=== PATIENT | female | born 1940 | race Caucasian/White ===

== ENCOUNTER 2020-01-29 13:42 | Emergency (ER) | payer MEDICARE, MEDICAID, SELFPAY ==
[2020-01-29 14:00] VITALS: BP 156/47; PULSE 81; RESP 18; TEMP 37.1; O2SAT 95; BMI 85.0
--- NOTE | 2020-01-29 14:11 | ED_ITS ---
HPI - Eye Problem General Chief complaint: Eye Problems Stated complaint: eye pain Time Seen by Provider: 01/29/20 14:11 Source: patient Mode of arrival: ambulatory Limitations: no limitations History of Present Illness chief complaint: eye pain and eye redness Onset (ago): day(s) (yesterdsay) Onset description: gradual Duration: constant Location: left eye Eye Symptoms: redness, pain, itching and other (teary eyes) Place: home Mechanism: none Severity: mild If Pain, Quality: burning Associated symptoms: none Treatments Prior to Arrival: none Related Data Previous Rx's Medication Instructions Recorded cephalexin 500 mg PO BID 7 Days #14 cap 01/29/20 erythromycin 0.5 inch OPHTHALMIC (EYE) TID 7 01/29/20 Days #3.5 g Allergies Allergy/AdvReac Type Severity Reaction Status Date / Time diazepam Allergy Intermediate MENTAL Unverified 12/09/19 14:53 STATUS CHANGES Review of Systems Review of Systems: Constitutional : No Weight loss, No Fever, No Chills ENT/Mouth : No sore throat, No Rhinorrhea Eyes: pos Eye Pain, No Swelling, pos Redness Cardiovascular : No Chest Pain, No SOB, No Dyspnea on Exertion, No Orthopnea, No Edema, No Palpitations Respiratory : No Cough, No Sputum, No Wheezing Gastrointestinal : No Nausea, No Vomiting, No Diarrhea, No Constipation, No abdominal Pain, No Hematochezia, No Melena Genitourinary : No Dysuria, No Urinary Frequency, No Hematuria, Musculoskeletal : No joint pain, No Myalgias, No Joint Swelling Skin : No Skin Lesions, No rash Neuro : No Weakness, No Numbness, No Dizziness, No Headache PMFSH Past Medical History Attestation statement: The following information was validated with the patient. Medical History Anxiety Asthma CHF (congestive heart failure) High cholesterol HTN (hypertension) Social History Social History Smoked in Last 30 Days: No Use of substances other than those prescribed or required for medical reasons: No Advance Directives: No Advance Directives Information Provided: No Physical Exam Vital Signs: Vital Signs: Last Vital Signs Temp 98.7 F 01/29/20 14:00 Pulse 81 01/29/20 14:00 Resp 18 01/29/20 14:00 BP 156/47 H 01/29/20 14:00 Pulse Ox 95 01/29/20 14:00 Body Mass Index 85.0 Appearance: Alert. Oriented X3. No acute distress. Eyes: Pupils equal, round and reactive to light. L eye mild injection, clear discharge, with tetracaine and fluorescein - no abrasion under toledo lamp, repeat rosina pressures 17, vision intact, mild erythema and swelling of L upper eyelid and surrounding periorbital area - no stranding very mild changes ENT: Pharynx normal. Neck: Normal inspection. Neck supple. CVS: Normal heart rate and rhythm. Pulses normal. Respiratory: No respiratory distress. Breath sounds normal. Abdomen: Soft and nontender. Skin: Skin warm and dry. Normal skin color. Normal skin turgor. Extremities: No lower extremity edema. No calf ttp Neuro: Oriented X 3. No motor deficit. No sensory deficit. MDM - Eye Problem MDM Narrative Medical decision making narrative: 80 yo female with hx of CHF, HTN here with L eye pain irritation no FB or trauma no vision changes will need eye exam, staining, rosina pressures suspect mild periorbital cellulitis and mild bl epharitis Discharge Plan Discharge Clinical Impression: Blepharitis Qualifiers: Blepharitis type: unspecified type Laterality: left Eyelid: both upper and lower Qualified Code(s): H01.00B - Unspecified blepharitis left eye, upper and lower eyelids Patient Disposition: Home, Self-Care Instructions: Blepharitis (ED) Additional Instructions: return to ED for any worsening symptoms or concerns Prescriptions: New erythromycin 5 mg/gram (0.5 %) ointment 0.5 inch ophthalmic (eye) TID 7 Days Qty: 3.5 RF: 0 cephalexin 500 mg capsule 500 mg PO BID 7 Days Qty: 14 RF: 0 Referrals: Anne Amado MD [Primary Care Provider] - 2 days (if not better)
[2020-01-29] MEDS: Tetracaine HCl/PF 0.5% Oph Sol 4 ML DROPS 1 DROP EYE-LEFT (14:15)
[2020-01-29] MEDS: Fluorescein Sodium STRIP 1 STRIP EYE-LEFT (14:16)
[2020-01-29] MEDS: Erythromycin Base 0.5% Oph Oin 1 GM TUBE 1 CM EYE-LEFT (14:33)
== END 2020-01-29 14:58 | disposition home or self-care (01) ==
PROVIDERS: Emergency Provider Emergency Medicine; PCP Internal Medicine
DX: H01.00B Unspecified blepharitis left eye, upper and lower eyelids (principal); H57.12 Ocular pain, left eye; Z79.899 Other long term (current) drug therapy
CPT/HCPCS: 99283; 99284

== ENCOUNTER 2020-06-07 08:26 | Outpatient (REF) | payer MEDICARE, MEDICAID, SELFPAY ==
[2020-06-07 09:06] LABS: MANUAL DIFF FLAG NO
[2020-06-07 09:09] LABS: Basophils Percent Auto 0.6 % (0-2); Eosinophils Absolute Auto 0.2 X10*3/uL (0.0-0.4); Eosinophils Percent Auto 4.8 % (0-4); Hemoglobin 12.6 g/dl (12.0-16.0); Lymphocytes Absolute Auto 1.9 X10*3/uL (1.2-4.9); Lymphocytes Percent Auto 38.8 % (20-40); Mean Corpuscular HGB Conc 33.2 g/dl (31.0-35.0); Mean Corpuscular Hemoglobin 32.1 pg (27.0-33.0); Mean Corpuscular Volume 96.7 fL (80-98); Mean Platelet Volume 9.2 fL (9.4-12.3); Monocytes Absolute Auto 0.5 X10*3/uL (0.1-1.2); Monocytes Percent Auto 10.9 % (2-11); Neutrophils Absolute Auto 2.2 X10*3/uL (2.0-8.3); Neutrophils Percent Auto 44.9 % (45-73); Platelet Count 172 X10*3/uL (160-400); Red Blood Count 3.93 X10*6/uL (4.20-5.50); Red Cell Distribution Width 12.4 % (11.0-16.0)
[2020-06-07 09:29] LABS: Carbon Dioxide 34 mmol/L (22-29); Chloride 102 mmol/L (96-108); Potassium 4.1 mmol/L (3.3-5.1); Sodium 142 mmol/L (135-145)
[2020-06-07 09:30] LABS: Anion Gap 10 (12-20); Blood Urea Nitrogen 42 mg/dL (9-16); Calcium 8.7 mg/dL (8.4-10.2); Estimated Glomerular Filt Rate 46
[2020-06-10 15:01] LABS: Calcium (PTHI) 8.9 mg/dL (8.6-10.4); PTHI 157 pg/mL (14-64)
== END 2020-06-07 08:27 | disposition home or self-care (01) ==
LOC: HO.LAB 08:26
PROVIDERS: PCP Internal Medicine; Visit Provider Internal Medicine Hypertension Specialist
DX: N18.31 Chronic kidney disease, stage 3a (principal)
CPT/HCPCS: 36415; 80051; 82310; 82565; 83970; 84520; 85025

== ENCOUNTER 2020-06-26 08:32 | Emergency (ER) | payer MEDICARE, MEDICAID, SELFPAY ==
--- NOTE | ~2020-06-26 | XR_ITS ---
EXAMINATION: LEFT FEMUR AND HIP X-RAYS CLINICAL INFORMATION: Pain. Fall. COMPARISON: Previous left hip x-ray December 2016 TECHNIQUE: 2 views of the left hip and 2 views of the left femur FINDINGS: Left hip: Bone alignment is normal. No fracture or dislocation is seen. The joint space is normal. There is soft tissue arterial calcification. Left knee: Bone alignment is normal. No fracture or dislocation is seen. The bones are osteopenic. There is arthritis at the medial femoral tibial and patellofemoral joints. There is no significant joint effusion. There is soft tissue arterial calcification. XR/XR knee LT 3V IMPRESSION: No fracture or dislocation seen. 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
--- NOTE | ~2020-06-26 | XR_ITS ---
EXAMINATION: LEFT FEMUR AND HIP X-RAYS CLINICAL INFORMATION: Pain. Fall. COMPARISON: Previous left hip x-ray December 2016 TECHNIQUE: 2 views of the left hip and 2 views of the left femur FINDINGS: Left hip: Bone alignment is normal. No fracture or dislocation is seen. The joint space is normal. There is soft tissue arterial calcification. Left knee: Bone alignment is normal. No fracture or dislocation is seen. The bones are osteopenic. There is arthritis at the medial femoral tibial and patellofemoral joints. There is no significant joint effusion. There is soft tissue arterial calcification. XR/XR femur LT 2V IMPRESSION: No fracture or dislocation seen. 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
--- NOTE | ~2020-06-26 | CT_ITS ---
EXAMINATION: HEAD CT WITHOUT CONTRAST CLINICAL INFORMATION: Weakness COMPARISON: Previous head CT May 2018 TECHNIQUE: Axial images through the brain without contrast. Sagittal and coronal reconstructions on the technologist workstation were performed. Patient dose 6 1 6 mg/cm. This CT examination was performed using dose optimization techniques as appropriate, variously including the following: *Automated exposure control *Adjustment of mA and/or kV according to patient size (this includes techniques or standardized protocols for targeted exams where dose is matched to indication/reason for exam; i.e. extremities or head) *Use of iterative reconstruction technique FINDINGS: There is no evidence of an extra-axial collection. There is no evidence of intra-axial or extra-axial hemorrhage. Ventricles and extra-axial CSF spaces are appropriate. Deras-white matter differentiation is normal. There is an old left thalamic lacunar infarct. No mass, mass effect or acute infarct is seen. No skull fracture is seen. Visualized paranasal sinuses, mastoid air cells and middle ears are clear. CT/CT head/brain wo con IMPRESSION: No acute findings. 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 EXAMINATION: Chest x-ray CLINICAL INFORMATION: Weakness COMPARISON: Previous chest x-ray May 2018 TECHNIQUE: Two-view chest FINDINGS: The cardiac silhouette is upper normal in size but stable. The thoracic aorta is tortuous and may be ectatic but appears stable as well. There is a large air-fluid level behind the heart suggestive of an esophageal hernia. There is chronic scarring or subsegmental atelectasis in the right mid lung that is unchanged. The lungs are otherwise clear. There is no pleural effusion or pneumothorax. There is arthritis at the shoulder joints. There are degenerative changes of the thoracic spine. IMPRESSION: No evidence for acute disease in the chest. Large esophageal hernia. Evidence of atherosclerotic disease. Chronic linear scarring or subsegmental atelectasis in the right middle lobe.
[2020-06-26 08:35] VITALS: BP 129/61; PULSE 79; O2SAT 95
[2020-06-26 08:43] VITALS: BP 111/64; PULSE 84; RESP 18; TEMP 36.9; O2SAT 100; BMI 39.7
--- NOTE | 2020-06-26 08:56 | ECG_ITS ---
Test Reason : WEAKNESS Blood Pressure : / mmHG Vent. 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
--- NOTE | 2020-06-26 08:59 | ED_ITS ---
HPI - Weakness General Chief complaint: Weakness <SHELBY Bustos Last Filed: 06/26/20 16:26> Stated complaint: INCREASED WEAKNESS WHILE WALKING FELT FAINT <SHELBY Bustos Last Filed: 06/26/20 16:26> Time Seen by Provider: 06/26/20 08:46 <Michaela Morales NP - Last Filed: 06/26/20 16:26> Source: patient and EMS <SHELBY Bustos Last Filed: 06/26/20 16:26> Mode of arrival: EMS <SHELBY Bustos Last Filed: 06/26/20 16:26> Limitations: no limitations <SHELBY Bustos Last Filed: 06/26/20 16:26> History of Present Illness HPI Narrative: 80yo female of anxiety, asthma, congestive heart failure, high cholesterol, hypertension here with complaints of generalized weakness for 3-4 days. The patient tells me that she has had some lower extremity swelling and she has some dyspnea with exertion which has been for quite some time and is not worsened. She denies any chest pain. She does have a chronic dry cough which is not worsened. She is also complaining of feeling lightheaded with position changes for the last few days. She tells me she almost had a fall yesterday due to feeling lightheaded. Denies any headache, fevers, chills, neck pain, back pain, vomiting, diarrhea. She has had some urinary frequency. Had fall 2 days ago landing on left knee and left leg. No head injury or loss of consciousness <SHELBY Bustos Last Filed: 06/26/20 16:26> Related Data Home medications: Previous Rx's Medication Instructions Recorded cephalexin 500 mg PO BID 7 Days #14 cap 01/29/20 erythromycin 0.5 inch OPHTHALMIC (EYE) TID 7 01/29/20 Days #3.5 g <SHELBY Bustos Last Filed: 06/26/20 16:26> Allergies/Adverse reactions: Allergies Allergy/AdvReac Type Severity Reaction Status Date / Time diazepam Allergy Intermediate MENTAL Verified 06/26/20 08:43 STATUS CHANGES <SHELBY Bustos Last Filed: 06/26/20 16:26> Review of Systems Review of Systems: Yes all other systems are reviewed and are negative <Michaela Morales NP - Last Filed: 06/26/20 16:26> Constitutional: Constitutional: Reports no additional constitutional c omplaints, Denies body ache(s), Denies chills, Denies fever(s), Denies headache(s) and Denies weakness <Michaela Morales NP - Last Filed: 06/26/20 16:26> Eyes: Eyes: Reports no additional eye complaints and Denies change in vision <Michaela Morales NP - Last Filed: 06/26/20 16:26> ENT: Reports system reviewed and no additional complaints, except as documented, Reports dizziness, Denies headache(s), Denies nasal congestion, Denies nasal discharge and Denies neck pain <SHELBY Bustos Last Filed: 06/26/20 16:26> Cardiovascular: Cardiovascular: Reports no additional cardiovascular complaints, Denies chest pain, Reports leg edema and Reports dyspnea on exertion <Michaela Morales NP - Last Filed: 06/26/20 16:26> Respiratory: Respiratory: Reports no additional respiratory complaints, Reports cough and Reports dyspnea on exertion <Michaela Morales NP - Last Filed: 06/26/20 16:26> Gastrointestinal: Gastrointestinal: Reports no additional gastrointestinal complaints, Denies abdominal pain, Denies diarrhea, Denies nausea and Denies vomiting <Michaela Morales NP - Last Filed: 06/26/20 16:26> Genitourinary: Genitourinary: Reports no additional female genitourinary complaints, Denies difficulty voiding, Denies dysuria, Denies flank pain, Denies urinary incontinence and Denies urinary urgency <Michaela Morales NP - Last Filed: 06/26/20 16:26> Comments: urinary frequency <Michaela Morales NP - Last Filed: 06/26/20 16:26> Musculoskeletal: Musculoskeletal: Reports no additional musculoskeletal compla ints, Denies back pain, Denies arthralgias, Denies joint swelling, Denies neck pain, Denies numbness and Denies tingling <Michaela Morales NP - Last Filed: 06/26/20 16:26> Integumentary/Breasts: Skin/Breast: Reports system reviewed and no additional complaints, except as docu and Denies rash <Michaela Morales NP - Last Filed: 06/26/20 16:26> Neurologic: Reports system reviewed and no additional complaints, except as documented, Denies Abnormal speech present, Reports dizziness, Denies headache(s), Denies numbness, Denies tingling and Denies weakness <Michaela Morales NP - Last Filed: 06/26/20 16:26> [facility] Past Medical History Attestation statement: The following information was validated with the patient. <Michaela Morales NP - Last Filed: 06/26/20 16:26> Source: old records reviewed and nursing notes reviewed <Michaela Morales NP - Last Filed: 06/26/20 16:26> Medical History: Medical History Anxiety Asthma CHF (congestive heart failure) High cholesterol HTN (hypertension) <Michaela Morales NP - Last Filed: 06/26/20 16:26> Social History Social History: Social History Alcohol intake: current Alcohol intake frequency: holidays/special occasions only Smoking Status: Never smoker Use of substances other than those prescribed or required for medical reasons: No Advance Directives: No Advance Directives Information Provided: No <Michaela Morales NP - Last Filed: 06/26/20 16:26> Physical Exam Vital Signs: Vital Signs: Last Vital Signs Temp 98.1 F 06/26/20 15:20 Pulse 67 06/26/20 15:20 Resp 18 06/26/20 15:20 BP 117/49 L 06/26/20 15:20 Pulse Ox 98 06/26/20 15:20 Body Mass Index 39.7 <Michaela Morales NP - Last Filed: 06/26/20 16:26> Vital Signs: Last Vital Signs Temp 98.1 F 06/26/20 15:20 Pulse 67 06/26/20 15:20 Resp 18 06/26/20 15:20 BP 117/49 L 06/26/20 15:20 Pulse Ox 98 06/26/20 15:20 Body Mass Index 39.7 <Scar Ramirez MD - Last Filed: 07/11/20 09:09> Const: General: cooperative, healthy appearing, comfortable and no acute distress <Michaela Morales NP - Last Filed: 06/26/20 16:26> Orientation/consciousness: patient oriented x3 <Michaela Morales NP - Last Filed: 06/26/20 16:26> Limitations: no limitations <Michaela Morales NP - Last Filed: 06/26/20 16:26> HENMT: Head: Yes normal to inspection <SHELBY Bustos Last Filed: 06/26/20 16:26> Ears: hearing grossly normal bilaterally <Michaela Morales NP - Last Filed: 06/26/20 16:26> General nose exam: Normal external nose present <Michaela Morales NP - Last Filed: 06/26/20 16:26> Face and sinus: Yes normal facial exam <Michaela Morales NP - Last Filed: 06/26/20 16:26> Mouth: Normal oral and palatal mucosa present <SHELBY Bustos Last Filed: 06/26/20 16:26> Throat: Yes posterior oropharynx normal <Michaela Morales NP - Last Filed: 06/26/20 16:26> Eyes: General: appearance normal, both eyes and all related structures <Michaela Morales NP - Last Filed: 06/26/20 16:26> Pupils: Equal, round and reactive pupils present <Michaela Morales NP - Last Filed: 06/26/20 16:26> Neck: Neck: Yes normal visual inspection <SHELBY Bustos Last Filed: 06/26/20 16:26> Chest: Chest palpation & inspection: normal inspection of the chest <Maribel Morales NP - Last Filed: 06/26/20 16:26> Resp: Effort & Inspection: normal respiratory effort <SHELBY Bustos Last Filed: 06/26/20 16:26> Auscultation: clear to auscultation bilaterally <Michaela Morales NP - Last Filed: 06/26/20 16:26> Cardio: Rate: regular rate <Michaela Morales NP - Last Filed: 06/26/20 16:26> Rhythm: regular rhythm <Michaela Morales NP - Last Filed: 06/26/20 16:26> Peripheral pulses: Peripheral pulses 2+ throughout <Michaela Morales NP - Last Filed: 06/26/20 16:26> GI: Inspection: Yes normal to inspection <SHELBY Bustos Last F iled: 06/26/20 16:26> Palpation (GI): Soft to palpation and nontender <Michaela Morales NP - Last Filed: 06/26/20 16:26> Auscultation: normal bowel sounds <Michaela Morales NP - Last Filed: 08/11 16:26> Back/Spine/Pelvis: Thoracic/Lumbar Spine: thoracic and lumbar spine normal to inspection <Michaela Morales NP - Last Filed: 06/26/20 16:26> Skin: General skin exam: no rashes or lesions noted <Michaela Morales NP - Last Filed: 06/26/20 16:26> Neuro: General: patient oriented x3, no focal motor deficits, normal sensation to monofilament and Unable to assess gait <Michaela Morales NP - Last Filed: 06/26/20 16:26> Cranial nerves: Yes Equal, round and reactive pupils present, Yes Bilaterally intact EOM present, Yes Nystagmus not present, Yes Normal facial strength present and Yes Midline tongue present <Michaela Morales NP - Last Filed: 06/26/20 16:26> Cognition (Neuro): normal cognition <Michaela Morales NP - Last Filed: 06/26/20 16:26> Speech: No Abnormal speech present <Michaela Morales NP - Last Filed: 06/26/20 16:26> Gait exam (Neuro): Unable to assess gait <Michaela Morales NP - Last Filed: 06/26/20 16:26> Motor exam (neuro): 5/5 motor strength present throughout <Michaela Morales NP - Last Filed: 06/26/20 16:26> Sensory Exam: Normal double simultaneous stimulation for sensation <Michaela Morales NP - Last Filed: 06/26/20 16:26> Extrem: Other: Ecchymosis over the left lateral thigh. Mild tenderness. No deformity or swelling. Mild swelling to the left knee with full range of motion and no warmth or redness <Michaela Morales NP - Last Filed: 06/26/20 16:26> General: Yes normal to inspection, Yes no calf tenderness and Yes edema (Mild lower extremity swelling nonpitting, 1+bilaterally ) <Michaela Morales NP - Last Filed: 06/26/20 16:26> Course Course Course Narrative: 80yo female here with complaints of generalized weakness for 3-4 days with feeling lightheaded with position changes, chronic lower extremity swelling with dyspnea on exertion and cough, falls at home. On exam well appearing. No neurological deficits. Hemodynamically stable. Will check labs, CXR, EKG, UA, CT head. 1200-imaging unremarkable. Labs show a mildly elevated troponin however on previous ED records this was noted to be similarly elevated. No chest pain or ischemic changes on EKG. Will plan for repeat 3 hour troponin. UA is negative. Patient here for weakness, falls at home will consult physical therapy and case management. 1230-PT saw patient, no need for STR. Recommend home VNA, PT. field party manager to arrange. Will plan for discharge post repeat troponin. 1530-repeat troponin delta. Plan for discharge home. Reviewed worrisome signs and symptoms and when to return to the emergency department. Comfortable discharge home. <Michaela Morales NP - Last Filed: 06/26/20 16:26> I have reviewed the chart <Scar Ramirez MD - Last Filed: 07/11/20 09:09> MDM - Weakness MDM Narrative Medical decision making narrative: underlying infection (pna, CXR, viral syndrome), acs, anemia, electrolyte abnormality, ICH versus lesion <Michaela Morales NP - Last Filed: 06/26/20 16:26> Medical Records Attestation: I reviewed the patient's medical records. <Michaela Morales NP - Last Filed: 06/26/20 16:26> Lab Data Attestation: I reviewed the patient's lab results. <Michaela Morales NP - Last Filed: 06/26/20 16:26> Result diagrams: : 06/26/20 10:29 06/26/20 10:29 <Michaela Morales NP - Last Filed: 06/26/20 16:26> Labs: Lab Results 06/26/20 06/26/20 06/26/20 Range/Units 10:29 10:29 10:29 WBC 3.4 L (4.8-10.8) X10*3/uL RBC 3.76 L (4.20-5.50) X10*6/uL Hgb 12.3 (12.0-16.0) g/dl Hct 36.6 L (37-47) % MCV 97.3 (80-98) fL MCH 32.7 (27.0-33.0) pg MCHC 33.6 (31.0-35.0) g/dl RDW 12.4 (11.0-16.0) % Plt Count 166 (160-400) X10*3/uL MPV 9.1 L (9.4-12.3) fL Immature Gran % (Auto) 0.3 (0.0-0.4) % Neut % (Auto) 45.9 (45-73) % Lymph % (Auto) 37.5 (20-40) % [place] % (Auto) 11.6 H (2-11) % Eos % (Auto) 4.1 H (0-4) % Baso % (Auto) 0.6 (0-2) % Lymph # (Auto) 1.3 (1.2-4.9) X10*3/uL [place] # (Auto) 0.4 (0.1-1.2) X10*3/uL Eos # (Auto) 0.1 (0.0-0.4) X10*3/uL Baso # (Auto) 0.0 (0.0-0.2) X10*3/uL Abs Immat Gran (auto) 0.01 (0.00-0.03) X10*3/uL Absolute Neuts (auto) 1.6 L (2.0-8.3) X10*3/uL Absolute Nucleated RBC 0.000 (0.0-0.012) X10*3/uL Nucleated RBC % (auto) 0.0 (0.0-0.2) /100WBC Hold Blue Top SEE NOTE Sodium 143 (135-145) mmol/L Potassium 3.9 (3.3-5.1) mmol/L Chloride 103 (96-108) mmol/L Carbon Dioxide 31 H (22-29) mmol/L Anion Gap 13 (12-20) BUN 42 H (9-16) mg/dL Creatinine 1.26 (0.5-1.4) mg/dL Estim Creat Clear Calc 27.5 Estimated GFR 41 Random Glucose 99 (60-115) mg/dL Calcium 8.4 (8.4-10.2) mg/dL Magnesium 2.2 (1.6-2.6) mg/dL Total Bilirubin 0.4 (0.0-1.0) mg/dL Direct Bilirubin 0.2 (0.0-0.5) mg/dL AST 29 (5-31) U/L ALT 20 (0-31) U/L Alkaline Phosphatase 68 (39-117) U/L Troponin I High Sens (<3.5-17.0) ng/L B-Natriuretic Peptide (<100) pg/mL Total Protein 6.2 L (6.5-8.0) g/dL Albumin 3.9 (3.5-5.0) g/dL Urine Color Urine Appearance Urine pH (5.0-8.0) Ur Specific [place] (1.005-1.025) Urine Protein (NEG-TRACE) MG/DL Urine Glucose (UA) (NEG) MG/DL Urine Ketones (NEG) MG/DL Urine Blood (NEG) Urine Nitrite (NEG) Ur Leukocyte Esterase (NEG) Urine RBC (0) /HPF Urine WBC (0-4) /HPF Ur Squamous Epith Cells /LPF Urine Bacteria /LPF COVID-19 ([facility]) (Negative) COVID-19 Clin Com 04/05/21 04/05/21 04/05/21 Range/Units 10:29 10:29 10:36 WBC (4.8-10.8) X10*3/uL RBC (4.20-5.50) X10*6/uL Hgb (12.0-16.0) g/dl Hct (37-47) % MCV (80-98) fL MCH (27.0-33.0) pg MCHC (31.0-35.0) g/dl RDW (11.0-16.0) % Plt Count (160-400) X10*3/uL MPV (9.4-12.3) fL Immature Gran % (Auto) (0.0-0.4) % Neut % (Auto) (45-73) % Lymph % (Auto) (20-40) % [place] % (Auto) (2-11) % Eos % (Auto) (0-4) % Baso % (Auto) (0-2) % Lymph # (Auto) (1.2-4.9) X10*3/uL [place] # (Auto) (0.1-1.2) X10*3/uL Eos # (Auto) (0.0-0.4) X10*3/uL Baso # (Auto) (0.0-0.2) X10*3/uL Abs Immat Gran (auto) (0.00-0.03) X10*3/uL Absolute Neuts (auto) (2.0-8.3) X10*3/uL Absolute Nucleated RBC (0.0-0.012) X10*3/uL Nucleated RBC % (auto) (0.0-0.2) /100WBC Hold Blue Top Sodium (135-145) mmol/L Potassium (3.3-5.1) mmol/L Chloride (96-108) mmol/L Carbon Dioxide (22-29) mmol/L Anion Gap (12-20) BUN (9-16) mg/dL Creatinine (0.5-1.4) mg/dL Estim Creat Clear Calc Estimated GFR Random Glucose (60-115) mg/dL Calcium (8.4-10.2) mg/dL Magnesium (1.6-2.6) mg/dL Total Bilirubin (0.0-1.0) mg/dL Direct Bilirubin (0.0-0.5) mg/dL AST (5-31) U/L ALT (0-31) U/L Alkaline Phosphatase (39-117) U/L Troponin I High Sens 8.8 (<3.5-17.0) ng/L B-Natriuretic Peptide 35 (<100) pg/mL Total Protein (6.5-8.0) g/dL Albumin (3.5-5.0) g/dL Urine Color Urine Appearance Urine pH (5.0-8.0) Ur Specific [place] (1.005-1.025) Urine Protein (NEG-TRACE) MG/DL Urine Glucose (UA) (NEG) MG/DL Urine Ketones (NEG) MG/DL Urine Blood (NEG) Urine Nitrite (NEG) Ur Leukocyte Esterase (NEG) Urine RBC (0) /HPF Urine WBC (0-4) /HPF Ur Squamous Epith Cells /LPF Urine Bacteria /LPF COVID-19 ([facility]) Negative (Negative) COVID-19 Clin Com See Note 06/26/20 06/26/20 Range/Units 10:36 13:42 WBC (4.8-10.8) X10*3/uL RBC (4.20-5.50) X10*6/uL Hgb (12.0-16.0) g/dl Hct (37-47) % MCV (80-98) fL MCH (27.0-33.0) pg MCHC (31.0-35.0) g/dl RDW (11.0-16.0) % Plt Count (160-400) X10*3/uL MPV (9.4-12.3) fL Immature Gran % (Auto) (0.0-0.4) % Neut % (Auto) (45-73) % Lymph % (Auto) (20-40) % [place] % (Auto) (2-11) % Eos % (Auto) (0-4) % Baso % (Auto) (0-2) % Lymph # (Auto) (1.2-4.9) X10*3/uL [place] # (Auto) (0.1-1.2) X10*3/uL Eos # (Auto) (0.0-0.4) X10*3/uL Baso # (Auto) (0.0-0.2) X10*3/uL Abs Immat Gran (auto) (0.00-0.03) X10*3/uL Absolute Neuts (auto) (2.0-8.3) X10*3/uL Absolute Nucleated RBC (0.0-0.012) X10*3/uL Nucleated RBC % (auto) (0.0-0.2) /100WBC Hold Blue Top Sodium (135-145) mmol/L Potassium (3.3-5.1) mmol/L Chloride (96-108) mmol/L Carbon Dioxide (22-29) mmol/L Anion Gap (12-20) BUN (9-16) mg/dL Creatinine (0.5-1.4) mg/dL Estim Creat Clear Calc Estimated GFR Random Glucose (60-115) mg/dL Calcium (8.4-10.2) mg/dL Magnesium (1.6-2.6) mg/dL Total Bilirubin (0.0-1.0) mg/dL Direct Bilirubin (0.0-0.5) mg/dL AST (5-31) U/L ALT (0-31) U/L Alkaline Phosphatase (39-117) U/L Troponin I High Sens 8.2 (<3.5-17.0) ng/L B-Natriuretic Peptide (<100) pg/mL Total Protein (6.5-8.0) g/dL Albumin (3.5-5.0) g/dL Urine Color STRAW Urine Appearance CLEAR Urine pH 6.0 (5.0-8.0) Ur Specific [place] 1.010 (1.005-1.025) Urine Protein NEG (NEG-TRACE) MG/DL Urine Glucose (UA) NEG (NEG) MG/DL Urine Ketones NEG (NEG) MG/DL Urine Blood TRACE (NEG) Urine Nitrite NEG (NEG) Ur Leukocyte Esterase NEG (NEG) Urine RBC 0-2 (0) /HPF Urine WBC 0 (0-4) /HPF Ur Squamous Epith Cells TRACE /LPF Urine Bacteria NONE /LPF COVID-19 ([facility]) (Negative) COVID-19 Clin Com <Mihcaela Morales NP - Last Filed: 06/26/20 16:26> Lab Results 06/26/20 06/26/20 06/26/20 Range/Units 10:29 10:29 10:29 WBC 3.4 L (4.8-10.8) X10*3/uL RBC 3.76 L (4.20-5.50) X10*6/uL Hgb 12.3 (12.0-16.0) g/dl Hct 36.6 L (37-47) % MCV 97.3 (80-98) fL MCH 32.7 (27.0-33.0) pg MCHC 33.6 (31.0-35.0) g/dl RDW 12.4 (11.0-16.0) % Plt Count 166 (160-400) X10*3/uL MPV 9.1 L (9.4-12.3) fL Immature Gran % (Auto) 0.3 (0.0-0.4) % Neut % (Auto) 45.9 (45-73) % Lymph % (Auto) 37.5 (20-40) % [place] % (Auto) 11.6 H (2-11) % Eos % (Auto) 4.1 H (0-4) % Baso % (Auto) 0.6 (0-2) % Lymph # (Auto) 1.3 (1.2-4.9) X10*3/uL [place] # (Auto) 0.4 (0.1-1.2) X10*3/uL Eos # (Auto) 0.1 (0.0-0.4) X10*3/uL Baso # (Auto) 0.0 (0.0-0.2) X10*3/uL Abs Immat Gran (auto) 0.01 (0.00-0.03) X10*3/uL Absolute Neuts (auto) 1.6 L (2.0-8.3) X10*3/uL Absolute Nucleated RBC 0.000 (0.0-0.012) X10*3/uL Nucleated RBC % (auto) 0.0 (0.0-0.2) /100WBC Hold Blue Top SEE NOTE Sodium 143 (135-145) mmol/L Potassium 3.9 (3.3-5.1) mmol/L Chloride 103 (96-108) mmol/L Carbon Dioxide 31 H (22-29) mmol/L Anion Gap 13 (12-20) BUN 42 H (9-16) mg/dL Creatinine 1.26 (0.5-1.4) mg/dL Estim Creat Clear Calc 27.5 Estimated GFR 41 Random Glucose 99 (60-115) mg/dL Calcium 8.4 (8.4-10.2) mg/dL Magnesium 2.2 (1.6-2.6) mg/dL Total Bilirubin 0.4 (0.0-1.0) mg/dL Direct Bilirubin 0.2 (0.0-0.5) mg/dL AST 29 (5-31) U/L ALT 20 (0-31) U/L Alkaline Phosphatase 68 (39-117) U/L Troponin I High Sens (<3.5-17.0) ng/L B-Natriuretic Peptide (<100) pg/mL Total Protein 6.2 L (6.5-8.0) g/dL Albumin 3.9 (3.5-5.0) g/dL Urine Color Urine Appearance Urine pH (5.0-8.0) Ur Specific [place] (1.005-1.025) Urine Protein (NEG-TRACE) MG/DL Urine Glucose (UA) (NEG) MG/DL Urine Ketones (NEG) MG/DL Urine Blood (NEG) Urine Nitrite (NEG) Ur Leukocyte Esterase (NEG) Urine RBC (0) /HPF Urine WBC (0-4) /HPF Ur Squamous Epith Cells /LPF Urine Bacteria /LPF COVID-19 ([facility]) (Negative) COVID-19 Clin Com 06/26/20 06/26/20 06/26/20 Range/Units 10:29 10:29 10:36 WBC (4.8-10.8) X10*3/uL RBC (4.20-5.50) X10*6/uL Hgb (12.0-16.0) g/dl Hct (37-47) % MCV (80-98) fL MCH (27.0-33.0) pg MCHC (31.0-35.0) g/dl RDW (11.0-16.0) % Plt Count (160-400) X10*3/uL MPV (9.4-12.3) fL Immature Gran % (Auto) (0.0-0.4) % Neut % (Auto) (45-73) % Lymph % (Auto) (20-40) % [place] % (Auto) (2-11) % Eos % (Auto) (0-4) % Baso % (Auto) (0-2) % Lymph # (Auto) (1.2-4.9) X10*3/uL [place] # (Auto) (0.1-1.2) X10*3/uL Eos # (Auto) (0.0-0.4) X10*3/uL Baso # (Auto) (0.0-0.2) X10*3/uL Abs Immat Gran (auto) (0.00-0.03) X10*3/uL Absolute Neuts (auto) (2.0-8.3) X10*3/uL Absolute Nucleated RBC (0.0-0.012) X10*3/uL Nucleated RBC % (auto) (0.0-0.2) /100WBC Hold Blue Top Sodium (135-145) mmol/L Potassium (3.3-5.1) mmol/L Chloride (96-108) mmol/L Carbon Dioxide (22-29) mmol/L Anion Gap (12-20) BUN (9-16) mg/dL Creatinine (0.5-1.4) mg/dL Estim Creat Clear Calc Estimated GFR Random Glucose (60-115) mg/dL Calcium (8.4-10.2) mg/dL Magnesium (1.6-2.6) mg/dL Total Bilirubin (0.0-1.0) mg/dL Direct Bilirubin (0.0-0.5) mg/dL AST (5-31) U/L ALT (0-31) U/L Alkaline Phosphatase (39-117) U/L Troponin I High Sens 8.8 (<3.5-17.0) ng/L B-Natriuretic Peptide 35 (<100) pg/mL Total Protein (6.5-8.0) g/dL Albumin (3.5-5.0) g/dL Urine Color Urine Appearance Urine pH (5.0-8.0) Ur Specific [place] (1.005-1.025) Urine Protein (NEG-TRACE) MG/DL Urine Glucose (UA) (NEG) MG/DL Urine Ketones (NEG) MG/DL Urine Blood (NEG) Urine Nitrite (NEG) Ur Leukocyte Esterase (NEG) Urine RBC (0) /HPF Urine WBC (0-4) /HPF Ur Squamous Epith Cells /LPF Urine Bacteria /LPF COVID-19 ([facility]) Negative (Negative) COVID-19 Clin Com See Note 06/26/20 06/26/20 Range/Units 10:36 13:42 WBC (4.8-10.8) X10*3/uL RBC (4.20-5.50) X10*6/uL Hgb (12.0-16.0) g/dl Hct (37-47) % MCV (80-98) fL MCH (27.0-33.0) pg MCHC (31.0-35.0) g/dl RDW (11.0-16.0) % Plt Count (160-400) X10*3/uL MPV (9.4-12.3) fL Immature Gran % (Auto) (0.0-0.4) % Neut % (Auto) (45-73) % Lymph % (Auto) (20-40) % [place] % (Auto) (2-11) % Eos % (Auto) (0-4) % Baso % (Auto) (0-2) % Lymph # (Auto) (1.2-4.9) X10*3/uL [place] # (Auto) (0.1-1.2) X10*3/uL Eos # (Auto) (0.0-0.4) X10*3/uL Baso # (Auto) (0.0-0.2) X10*3/uL Abs Immat Gran (auto) (0.00-0.03) X10*3/uL Absolute Neuts (auto) (2.0-8.3) X10*3/uL Absolute Nucleated RBC (0.0-0.012) X10*3/uL Nucleated RBC % (auto) (0.0-0.2) /100WBC Hold Blue Top Sodium (135-145) mmol/L Potassium (3.3-5.1) mmol/L Chloride (96-108) mmol/L Carbon Dioxide (22-29) mmol/L Anion Gap (12-20) BUN (9-16) mg/dL Creatinine (0.5-1.4) mg/dL Estim Creat Clear Calc Estimated GFR Random Glucose (60-115) mg/dL Calcium (8.4-10.2) mg/dL Magnesium (1.6-2.6) mg/dL Total Bilirubin (0.0-1.0) mg/dL Direct Bilirubin (0.0-0.5) mg/dL AST (5-31) U/L ALT (0-31) U/L Alkaline Phosphatase (39-117) U/L Troponin I High Sens 8.2 (<3.5-17.0) ng/L B-Natriuretic Peptide (<100) pg/mL Total Protein (6.5-8.0) g/dL Albumin (3.5-5.0) g/dL Urine Color STRAW Urine Appearance CLEAR Urine pH 6.0 (5.0-8.0) Ur Specific [place] 1.010 (1.005-1.025) Urine Protein NEG (NEG-TRACE) MG/DL Urine Glucose (UA) NEG (NEG) MG/DL Urine Ketones NEG (NEG) MG/DL Urine Blood TRACE (NEG) Urine Nitrite NEG (NEG) Ur Leukocyte Esterase NEG (NEG) Urine RBC 0-2 (0) /HPF Urine WBC 0 (0-4) /HPF Ur Squamous Epith Cells TRACE /LPF Urine Bacteria NONE /LPF COVID-19 ([facility]) (Negative) COVID-19 Clin Com <Scar Ramirez MD - Last Filed: 07/11/20 09:09> Imaging Data Chest x-ray: Attestation: I personally reviewed and interpreted this imaging study as follows: <Michaela Morales NP - Last Filed: 06/26/20 16:26> Radiologist's impression: IMPRESSION: No evidence for acute disease in the chest. Large esophageal hernia. Evidence of atherosclerotic disease. Chronic linear scarring or subsegmental atelectasis in the right middle lobe. <Michaela Morales NP - Last Filed: 06/26/20 16:26> CT scan - head: Attestation: I personally reviewed and interpreted this imaging study as follows: <Michaela Morales NP - Last Filed: 06/26/20 16:26> Radiologist's impression: FINDINGS: There is no evidence of an extra-axial collection. There is no evidence of intra-axial or extra-axial hemorrhage. Ventricles and extra-axial CSF spaces are appropriate. Deras-white matter differentiation is normal. There is an old left thalamic lacunar infarct. No mass, mass effect or acute infarct is seen. No skull fracture is seen. Visualized paranasal sinuses, mastoid air cells and middle ears are clear. <Michaela Morales NP - Last Filed: 06/26/20 16:26> Left femur/hip x-ray: Attestation: I personally reviewed and interpreted this imaging study as follows: <Michaela Morales NP - Last Filed: 06/26/20 16:26> Radiologist's impression: No fracture or dislocation seen. 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 <SHELBY Bustos Last Filed: 06/26/20 16:26> ECG Data Attestation: I personally reviewed and interpreted this ECG as follows: <SHELBY Bustos Last Filed: 06/26/20 16:26> ECG interpretation date: 06/26/20 <Michaela Morales NP - Last Filed: 06/26/20 16:26> ECG interpretation time: 11:08 <SHELBY Bustos Last Filed: 06/26/20 16:26> Interpretation: NSR rate 65, normal PRw, normal QRS, qtc 457 <SHELBY Bustos Last Filed: 06/26/20 16:26> Discharge Plan Discharge Clinical Impression: Weakness <SHELBY Bustos Last Filed: 06/26/20 16:26> Patient Disposition: Home, Self-Care <SHELBY Bustos Last Filed: 06/26/20 16:26> Instructions: Weakness (ED) <SHELBY Bustos Last Filed: 06/26/20 16:26> Additional Instructions: Change positions slowly, eat small frequent meals Follow-up with your primary care doctor this week <SHELBY Bustos Last Filed: 06/26/20 16:26> Prescriptions: No Action erythromycin 5 mg/gram (0.5 %) ointment 0.5 inch ophthalmic (eye) TID 7 Days Qty: 3.5 RF: 0 cephalexin 500 mg capsule 500 mg PO BID 7 Days Qty: 14 RF: 0 <Michaela Morales NP - Last Filed: 06/26/20 16:26> Referrals: Anne Amado MD [Primary Care Provider] - 2 days <Michaela Morales NP - Last Filed: 06/26/20 16:26> Interventions: ED Discharge Assessment Last Done: 06/26/20 16:39 <Michaela Morales NP - Last Filed: 06/26/20 16:26> Discharge Date/Time: 06/26/20 16:40 <Michaela Morales NP - Last Filed: 06/26/20 16:26>
[2020-06-26 10:39] VITALS: BP 98/35; PULSE 68; O2SAT 96
[2020-06-26 11:06] LABS: Glucose Urine UA NEG (NEG); Leukocyte Esterase Urine NEG (NEG); Nitrite Urine NEG (NEG); Urine Blood TRACE (NEG); Urine Ketones NEG (NEG); Urine Protein NEG (NEG-TRACE)
[2020-06-26 11:06] LABS: MANUAL DIFF FLAG NO
[2020-06-26 11:08] LABS: Basophils Percent Auto 0.6 % (0-2); Eosinophils Absolute Auto 0.1 X10*3/uL (0.0-0.4); Eosinophils Percent Auto 4.1 % (0-4); Hematocrit 36.6 % (37-47); Hemoglobin 12.3 g/dl (12.0-16.0); Imm Gran Abs Auto 0.01 X10*3/uL (0.00-0.03); Imm Gran Pct Auto 0.3 % (0.0-0.4); Lymphocytes Absolute Auto 1.3 X10*3/uL (1.2-4.9); Lymphocytes Percent Auto 37.5 % (20-40); Mean Corpuscular HGB Conc 33.6 g/dl (31.0-35.0); Mean Corpuscular Hemoglobin 32.7 pg (27.0-33.0); Mean Corpuscular Volume 97.3 fL (80-98); Mean Platelet Volume 9.1 fL (9.4-12.3); Monocytes Absolute Auto 0.4 X10*3/uL (0.1-1.2); Monocytes Percent Auto 11.6 % (2-11); Neutrophils Absolute Auto 1.6 X10*3/uL (2.0-8.3); Neutrophils Percent Auto 45.9 % (45-73); Platelet Count 166 X10*3/uL (160-400); Red Blood Count 3.76 X10*6/uL (4.20-5.50); Red Cell Distribution Width 12.4 % (11.0-16.0); White Blood Count 3.4 X10*3/uL (4.8-10.8)
[2020-06-26 11:10] LABS: COVID-19 Test Negative (Negative); IDNOW Serial# 9DD0AD1C
[2020-06-26 11:11] LABS: Appearance Urine CLEAR; Color Urine STRAW
[2020-06-26 11:16] VITALS: BP 107/49; PULSE 71; RESP 18; TEMP 36.8; O2SAT 95
--- NOTE | 2020-06-26 11:19 | PC.NURSE ---
patient a&o, labs drawn, ekg performed, court recording monitor applied nsr 70s, vitals stable, lt thigh area ecchymosis from previous fall last week-pt states she tripped and fell accidentally- walks with cane at baseline. provider notified of fall. will continue to monitor.
[2020-06-26 11:37] LABS: Alanine Aminotransferase 20 U/L (0-31); Albumin Level 3.9 g/dL (3.5-5.0); Alkaline Phosphatase 68 U/L (39-117); Anion Gap 13 (12-20); Aspartate Amino Transferase 29 U/L (5-31); Bilirubin Direct 0.2 mg/dL (0.0-0.5); Bilirubin Total 0.4 mg/dL (0.0-1.0); Blood Urea Nitrogen 42 mg/dL (9-16); Calcium 8.4 mg/dL (8.4-10.2); Carbon Dioxide 31 mmol/L (22-29); Chloride 103 mmol/L (96-108); Creatinine Clr Calc Pharmacy 27.5; Estimated Glomerular Filt Rate 41; Glucose Random 99 mg/dL (60-115); Magnesium 2.2 mg/dL (1.6-2.6); Potassium 3.9 mmol/L (3.3-5.1); Sodium 143 mmol/L (135-145); Total Protein 6.2 g/dL (6.5-8.0)
[2020-06-26 11:39] LABS: Troponin-I High Sensitivity 8.8 ng/L (<3.5-17.0)
[2020-06-26 11:43] LABS: RBC Urine 0-2 /HPF (0); Squamous Epithelial Cell Urine TRACE /LPF; WBC Urine 0 /HPF (0-4)
[2020-06-26 12:04] LABS: B Type Natriuretic Peptide 35 pg/mL (<100)
--- NOTE | 2020-06-26 12:23 | PC.NURSE ---
pt evaluated patient, pt cleared to discharge back home with services
[2020-06-26 12:28] VITALS: BP 107/49; PULSE 71; O2SAT 95
--- NOTE | 2020-06-26 12:44 | MHC.CM.ED ---
pt is has requested a ref. be made to [facility] for nsg and home PT. this has been done. pt will have her niece provide transportation home when dc'd from the e.d. cm to cont. to follow.
[2020-06-26 15:06] LABS: Troponin-I High Sensitivity 8.2 ng/L (<3.5-17.0)
[2020-06-26 15:20] VITALS: BP 117/49; PULSE 67; RESP 18; TEMP 36.7; O2SAT 98
--- NOTE | 2020-06-26 16:17 | PC.NURSE ---
pradeep to come chicken picker patient-she has been called, pt in bathroom getting dressed
== END 2020-06-26 16:40 | disposition home or self-care (01) ==
PROVIDERS: Nurse Practitioner Family; Emergency Provider Emergency Medicine; PCP Internal Medicine
DX: R53.1 Weakness (principal); M25.462 Effusion, left knee; M25.461 Effusion, right knee; R42 Dizziness and giddiness; F41.1 Generalized anxiety disorder; F43.0 Acute stress reaction; Z20.822 Contact with and (suspected) exposure to COVID-19; Z79.899 Other long term (current) drug therapy
CPT/HCPCS: 36415; 70450; 71046; 73552; 73562; 80048; 80076; 81001; 81003; 83735; 83880; 84484; 85025; 87635; 93005; 97162; 99284

== ENCOUNTER 2020-11-15 20:20 | Emergency (ER) | payer MEDICARE, MEDICAID, SELFPAY ==
--- NOTE | ~2020-11-15 | XR_ITS ---
EXAMINATION: XR CHEST CLINICAL INFORMATION: Dyspnea COMPARISON: 06/26/2020 TECHNIQUE: Frontal view of the chest was obtained. FINDINGS: No acute finding. Platelike atelectasis right midlung is once again seen may be chronic. No obvious failure or infiltrate. There is no effusion. Probable hiatal hernia. XR/XR chest 1V IMPRESSION: No acute finding.
--- NOTE | ~2020-11-15 | CT_ITS ---
EXAMINATION: CT CHEST WITHOUT CONTRAST CLINICAL INFORMATION: Atraumatic right posterior wall chest pain COMPARISON: Chest x-ray November 15, 2020. CT chest November 26, 2016 TECHNIQUE: Multidetector volumetric CT imaging of the chest was done. Axial MIP volume rendering provided. Sagittal and coronal reformatted images were obtained. This CT examination was performed using dose optimization techniques as appropriate, variously including the following: *Automated exposure control *Adjustment of mA and/or kV according to patient size (this includes techniques or standardized protocols for targeted exams where dose is matched to indication/reason for exam; i.e. extremities or head) *Use of iterative reconstruction technique DLP: 369 mGy-cm FINDINGS: LUNGS: The lungs are clear with no evidence of inflammation or nodules. There is slight thickening of the minor fissure. MEDIASTINUM: Heart size is normal. There is no pericardial effusion. Moderate volume of coronary calcifications. Moderate to marked volume of vascular calcifications of thoracic aortic arch and origin of great vessels. No mediastinal mass or significant lymphadenopathy. There is a large hiatal hernia. PLEURA: There is no pleural effusion. No pleural mass or thickening. AXILLA: No lymphadenopathy. UPPER ABDOMEN: Multiple bilateral renal cysts. Small linear calcification at the mid lower pole left kidney may be vascular. There are vascular calcifications in the right renal kim. No abnormality visualized portions of liver, spleen, pancreas or the adrenal glands. OSSEOUS STRUCTURES: Multilevel degenerative spondylosis spine. No rib abnormality to account for patient's pain. No chest wall mass or fluid collection or inflammation. CT/CT chest wo con IMPRESSION: 1. No acute abnormality of the chest. No chest wall abnormality to account for patient pain. 2. There is a large hiatal hernia.
[2020-11-15 20:36] VITALS: BP 167/77; PULSE 89; RESP 18; TEMP 36.2; O2SAT 95; BMI 41.2
--- NOTE | 2020-11-15 20:42 | ECG_ITS ---
Test Reason : SOB Blood Pressure : / mmHG Vent. Rate : 081 BPM Atrial Rate : 081 BPM P-R Int : 156 ms QRS Dur : 090 ms QT Int : 376 ms P-R-T Axes : 017 -10 010 degrees QTc Int : 436 ms Normal sinus rhythm Moderate voltage criteria for LVH, may be normal variant Borderline ECG When compared with ECG of 26-JUN-2020 11:08, No significant change was found Referred By: Generic ED Physician Electronically Signed By:JACQUELINE SIMPSON
[2020-11-15 21:41] LABS: MANUAL DIFF FLAG NO
[2020-11-15 21:43] LABS: Hematocrit 35.6 % (37-47); Hemoglobin 12.1 g/dl (12.0-16.0); Imm Gran Abs Auto 0.04 X10*3/uL (0.00-0.03); Imm Gran Pct Auto 0.6 % (0.0-0.4); Lymphocytes Absolute Auto 0.5 X10*3/uL (1.2-4.9); Lymphocytes Percent Auto 7.5 % (20-40); Mean Corpuscular Hemoglobin 31.9 pg (27.0-33.0); Mean Corpuscular Volume 93.9 fL (80-98); Mean Platelet Volume 8.8 fL (9.4-12.3); Monocytes Absolute Auto 0.4 X10*3/uL (0.1-1.2); Monocytes Percent Auto 5.4 % (2-11); Neutrophils Absolute Auto 6.3 X10*3/uL (2.0-8.3); Neutrophils Percent Auto 86.5 % (45-73); Platelet Count 197 X10*3/uL (160-400); Red Blood Count 3.79 X10*6/uL (4.20-5.50); Red Cell Distribution Width 12.8 % (11.0-16.0); White Blood Count 7.2 X10*3/uL (4.8-10.8)
[2020-11-15 21:49] LABS: Prothrombin Time 11.4 SEC (9.9-13.0)
[2020-11-15 22:00] VITALS: BP 138/69; PULSE 73; RESP 18; TEMP 37.4; O2SAT 96
[2020-11-15 22:14] LABS: Alanine Aminotransferase 25 U/L (0-31); Albumin Level 4.3 g/dL (3.5-5.0); Alkaline Phosphatase 63 U/L (39-117); Anion Gap 16 (12-20); Aspartate Amino Transferase 34 U/L (5-31); Bilirubin Total 0.5 mg/dL (0.0-1.0); Blood Urea Nitrogen 50 mg/dL (9-16); Calcium 8.7 mg/dL (8.4-10.2); Carbon Dioxide 25 mmol/L (22-29); Chloride 106 mmol/L (96-108); Creatinine Clr Calc Pharmacy 25.8; Estimated Glomerular Filt Rate 37; Glucose Random 133 mg/dL (60-115); Potassium 4.4 mmol/L (3.3-5.1); Sodium 143 mmol/L (135-145); Total Protein 6.7 g/dL (6.5-8.0)
--- NOTE | 2020-11-15 22:17 | ED.SOB ---
HPI - SOB/Dyspnea General Chief Complaint: Dyspnea Stated Complaint: SoB, back pain Time Seen by Provider: 11/15/20 21:17 Source: patient Mode of arrival: ambulatory History of Present Illness HPI Narrative: 80-year-old female presents with complaints of increasing shortness of breath for the past 2-3 days and then onset of right posterior mid back pain that she states is located at the approximate shoulder blade area and denies any falls, trauma, pushing/pulling event that would have led to a strained muscle. She does report a nonproductive cough but denies any fevers, chills. In addition, she describes noting increase lower extremity swelling and is currently taking Lasix but denies any chest pain or palpitations and additionally denies any GI or symptoms. Related Data Previous Rx's Medication Instructions Recorded cephalexin 500 mg capsule 500 mg PO BID 7 Days #14 cap 01/29/20 erythromycin 5 mg/gram (0.5 %) eye 0.5 inch OPHTHALMIC (EYE) TID 7 01/29/20 ointment Days #3.5 g cephalexin 500 mg capsule 500 mg PO Q12H 5 Days #10 cap 11/16/20 Allergies Allergy/AdvReac Type Severity Reaction Status Date / Time diazepam Allergy Intermediate MENTAL Verified 11/15/20 20:36 STATUS CHANGES Review of Systems Review of Systems: Pertinent positives and negatives as stated in HPI 10 point review of systems is otherwise negative. PMFSH Past Medical History Source: nursing notes reviewed Medical History Anxiety Asthma CHF (congestive heart failure) High cholesterol HTN (hypertension) Social History Social History Alcohol intake: current Alcohol intake frequency: holidays/special occasions only Advance Directives: No Advance Directives Information Provided: Yes Physical Exam Vital Signs: Vital Signs: Last Vital Signs Temp 99.3 F 11/15/20 22:00 Pulse 73 11/15/20 22:00 Resp 18 11/15/20 22:00 BP 138/69 11/15/20 22:00 Pulse Ox 96 11/15/20 22:00 Body Mass Index 41.2 VITAL SIGNS: Reviewed. GENERAL: Well developed, well nourished, in no acute distress. HEAD: Normocephalic/atraumatic EYES: PERRLA, EOMI LUNGS: Normal breath sounds. No adventitious sounds or accessory muscle use. SpO2<96> CARDIOVASCULAR: Regular rate and rhythm without noted murmurs, no JVD mild bilateral lower pitting 1+ edema ABDOMEN: Soft, non-tender, non-distended with bowel sounds. BACK: No midline vertebral tenderness noted, no cellulitis/crepitus/induration noted at the right mid back area however there is mild tenderness to palpation. MUSCULOSKELETAL: No tenderness, deformities, or effusions noted on gross inspection. EXTREMITIES: No cyanosis, clubbing or edema. SKIN: Inspection of the skin reveals no rashes NEUROLOGIC: Alert and oriented x 4. Strength and sensation to light touch were grossly intact x 4. Course Course Course Narrative: 80-year-old female with history and clinical presentation suggestive CHF exacerbation, possible pneumonia. Review of all investigations negative for any acute findings other than a UTI and patient was noted to be leaving the premises without discharge paperwork or the urinalysis results. Will send antibiotic prescription to her pharmacy and nursing staff will call to notify the patient of the new prescription. MDM - SOB/Dyspnea Lab Data Result diagrams: 11/15/20 21:37 11/15/20 21:37 Labs: Lab Results 11/15/20 11/15/20 11/15/20 Range/Units 21:37 21:37 21:37 WBC 7.2 (4.8-10.8) X10*3/uL RBC 3.79 L (4.20-5.50) X10*6/uL Hgb 12.1 (12.0-16.0) g/dl Hct 35.6 L (37-47) % MCV 93.9 (80-98) fL MCH 31.9 (27.0-33.0) pg MCHC 34.0 (31.0-35.0) g/dl RDW 12.8 (11.0-16.0) % Plt Count 197 (160-400) X10*3/uL MPV 8.8 L (9.4-12.3) fL Immature Gran % (Auto) 0.6 H (0.0-0.4) % Neut % (Auto) 86.5 H (45-73) % Lymph % (Auto) 7.5 L (20-40) % Sebastian % (Auto) 5.4 (2-11) % Eos % (Auto) 0.0 (0-4) % Baso % (Auto) 0.0 (0-2) % Lymph # (Auto) 0.5 L (1.2-4.9) X10*3/uL Sebastian # (Auto) 0.4 (0.1-1.2) X10*3/uL Eos # (Auto) 0.0 (0.0-0.4) X10*3/uL Baso # (Auto) 0.0 (0.0-0.2) X10*3/uL Abs Immat Gran (auto) 0.04 H (0.00-0.03) X10*3/uL Absolute Neuts (auto) 6.3 (2.0-8.3) X10*3/uL Absolute Nucleated RBC 0.000 (0.0-0.012) X10*3/uL Nucleated RBC % (auto) 0.0 (0.0-0.2) /100WBC PT 11.4 (9.9-13.0) SEC INR 1.0 (0.9-1.1) Sodium 143 (135-145) mmol/L Potassium 4.4 (3.3-5.1) mmol/L Chloride 106 (96-108) mmol/L Carbon Dioxide 25 (22-29) mmol/L Anion Gap 16 (12-20) BUN 50 H (9-16) mg/dL Creatinine 1.37 (0.5-1.4) mg/dL Estim Creat Clear Calc 25.8 Estimated GFR 37 Random Glucose 133 H (60-115) mg/dL Calcium 8.7 (8.4-10.2) mg/dL Total Bilirubin 0.5 (0.0-1.0) mg/dL AST 34 H (5-31) U/L ALT 25 (0-31) U/L Alkaline Phosphatase 63 (39-117) U/L Troponin I High Sens (<3.5-17.0) ng/L B-Natriuretic Peptide (<100) pg/mL Total Protein 6.7 (6.5-8.0) g/dL Albumin 4.3 (3.5-5.0) g/dL Urine Color Urine Appearance Urine pH (5.0-8.0) Ur Specific [place] (1.005-1.025) Urine Protein (NEG-TRACE) MG/DL Urine Glucose (UA) (NEG) MG/DL Urine Ketones (NEG) MG/DL Urine Blood (NEG) Urine Nitrite (NEG) Ur Leukocyte Esterase (NEG) Urine RBC (0) /HPF Urine WBC (0-4) /HPF Ur Squamous Epith Cells /LPF Urine Bacteria /LPF Urine Mucus /LPF COVID-19 ([facility]) (Negative) COVID-19 Clin Com 11/15/20 11/15/20 11/16/20 Range/Units 21:37 23:24 00:44 WBC (4.8-10.8) X10*3/uL RBC (4.20-5.50) X10*6/uL Hgb (12.0-16.0) g/dl Hct (37-47) % MCV (80-98) fL MCH (27.0-33.0) pg MCHC (31.0-35.0) g/dl RDW (11.0-16.0) % Plt Count (160-400) X10*3/uL MPV (9.4-12.3) fL Immature Gran % (Auto) (0.0-0.4) % Neut % (Auto) (45-73) % Lymph % (Auto) (20-40) % Sebastian % (Auto) (2-11) % Eos % (Auto) (0-4) % Baso % (Auto) (0-2) % Lymph # (Auto) (1.2-4.9) X10*3/uL Sebastian # (Auto) (0.1-1.2) X10*3/uL Eos # (Auto) (0.0-0.4) X10*3/uL Baso # (Auto) (0.0-0.2) X10*3/uL Abs Immat Gran (auto) (0.00-0.03) X10*3/uL Absolute Neuts (auto) (2.0-8.3) X10*3/uL Absolute Nucleated RBC (0.0-0.012) X10*3/uL Nucleated RBC % (auto) (0.0-0.2) /100WBC PT (9.9-13.0) SEC INR (0.9-1.1) Sodium (135-145) mmol/L Potassium (3.3-5.1) mmol/L Chloride (96-108) mmol/L Carbon Dioxide (22-29) mmol/L Anion Gap (12-20) BUN (9-16) mg/dL Creatinine (0.5-1.4) mg/dL Estim Creat Clear Calc Estimated GFR Random Glucose (60-115) mg/dL Calcium (8.4-10.2) mg/dL Total Bilirubin (0.0-1.0) mg/dL AST (5-31) U/L ALT (0-31) U/L Alkaline Phosphatase (39-117) U/L Troponin I High Sens 12.0 11.5 (<3.5-17.0) ng/L B-Natriuretic Peptide 99 (<100) pg/mL Total Protein (6.5-8.0) g/dL Albumin (3.5-5.0) g/dL Urine Color Urine Appearance Urine pH (5.0-8.0) Ur Specific [place] (1.005-1.025) Urine Protein (NEG-TRACE) MG/DL Urine Glucose (UA) (NEG) MG/DL Urine Ketones (NEG) MG/DL Urine Blood (NEG) Urine Nitrite (NEG) Ur Leukocyte Esterase (NEG) Urine RBC (0) /HPF Urine WBC (0-4) /HPF Ur Squamous Epith Cells /LPF Urine Bacteria /LPF Urine Mucus /LPF COVID-19 ([facility]) Negative (Negative) COVID-19 Clin Com See Note 11/16/20 Range/Units 01:53 WBC (4.8-10.8) X10*3/uL RBC (4.20-5.50) X10*6/uL Hgb (12.0-16.0) g/dl Hct (37-47) % MCV (80-98) fL MCH (27.0-33.0) pg MCHC (31.0-35.0) g/dl RDW (11.0-16.0) % Plt Count (160-400) X10*3/uL MPV (9.4-12.3) fL Immature Gran % (Auto) (0.0-0.4) % Neut % (Auto) (45-73) % Lymph % (Auto) (20-40) % Sebastian % (Auto) (2-11) % Eos % (Auto) (0-4) % Baso % (Auto) (0-2) % Lymph # (Auto) (1.2-4.9) X10*3/uL Sebastian # (Auto) (0.1-1.2) X10*3/uL Eos # (Auto) (0.0-0.4) X10*3/uL Baso # (Auto) (0.0-0.2) X10*3/uL Abs Immat Gran (auto) (0.00-0.03) X10*3/uL Absolute Neuts (auto) (2.0-8.3) X10*3/uL Absolute Nucleated RBC (0.0-0.012) X10*3/uL Nucleated RBC % (auto) (0.0-0.2) /100WBC PT (9.9-13.0) SEC INR (0.9-1.1) Sodium (135-145) mmol/L Potassium (3.3-5.1) mmol/L Chloride (96-108) mmol/L Carbon Dioxide (22-29) mmol/L Anion Gap (12-20) BUN (9-16) mg/dL Creatinine (0.5-1.4) mg/dL Estim Creat Clear Calc Estimated GFR Random Glucose (60-115) mg/dL Calcium (8.4-10.2) mg/dL Total Bilirubin (0.0-1.0) mg/dL AST (5-31) U/L ALT (0-31) U/L Alkaline Phosphatase (39-117) U/L Troponin I High Sens (<3.5-17.0) ng/L B-Natriuretic Peptide (<100) pg/mL Total Protein (6.5-8.0) g/dL Albumin (3.5-5.0) g/dL Urine Color YELLOW Urine Appearance CLEAR Urine pH 6.0 (5.0-8.0) Ur Specific [place] 1.025 (1.005-1.025) Urine Protein NEG (NEG-TRACE) MG/DL Urine Glucose (UA) NEG (NEG) MG/DL Urine Ketones NEG (NEG) MG/DL Urine Blood TRACE (NEG) Urine Nitrite NEG (NEG) Ur Leukocyte Esterase TRACE H (NEG) Urine RBC 1-4 (0) /HPF Urine WBC 5-9 H (0-4) /HPF Ur Squamous Epith Cells 2+ /LPF Urine Bacteria 2+ /LPF Urine Mucus 2+ /LPF COVID-19 ([facility]) (Negative) COVID-19 Clin Com ECG Data Attestation: I personally reviewed and interpreted this ECG as follows: Prior ECG tracings: available for review (06/26/2020 no acute changes on comparison) Interpretation: Normal sinus rhythm, HR-81, no STEMI, ND/QRS/QTC are within normal limits. Discharge Plan Discharge Clinical Impression: Breath, shortness, Acute UTI Patient Disposition: Home, Self-Care Instructions: Urinary Tract Infection in Women (ED) Additional Instructions: 1. Please resume all home medications. 2. You have been prescribed an antibiotic for your UTI. 3. Please follow-up with your primary care provider 1st thing in the morning. Return to the ER for acute worsening of your symptoms. Prescriptions: New cephalexin 500 mg capsule 500 mg PO Q12H 5 Days Qty: 10 RF: 0 No Action erythromycin 5 mg/gram (0.5 %) ointment 0.5 inch ophthalmic (eye) TID 7 Days Qty: 3.5 RF: 0 cephalexin 500 mg capsule 500 mg PO BID 7 Days Qty: 14 RF: 0 Referrals: Physician,Unknown [Primary Care Provider] - 2 days
[2020-11-15 22:36] LABS: B Type Natriuretic Peptide 99 pg/mL (<100)
[2020-11-15] MEDS: Lidocaine 4 % Patch ADH..PATCH 1 PATCH TRANSDERMA (23:25)
[2020-11-15] MEDS: Acetaminophen 325 MG TABLET 975 MG PO (23:25)
[2020-11-16 00:32] LABS: COVID-19 Test Negative (Negative); IDNOW Serial# 9DD0AD1C
[2020-11-16 01:12] LABS: Troponin-I High Sensitivity 11.5 ng/L (<3.5-17.0)
[2020-11-16 02:07] LABS: Glucose Urine UA NEG (NEG); Leukocyte Esterase Urine TRACE (NEG); Nitrite Urine NEG (NEG); Specific Gravity - Urine 1.025 (1.005-1.025); UACC Culture Trigger YES; Urine Blood TRACE (NEG); Urine Ketones NEG (NEG); Urine Protein NEG (NEG-TRACE)
[2020-11-16 02:08] LABS: Appearance Urine CLEAR; Color Urine YELLOW
[2020-11-16 02:13] LABS: Bacteria Urine 2+ /LPF; Mucus Urine 2+ /LPF; Squamous Epithelial Cell Urine 2+ /LPF
== END 2020-11-16 02:47 | disposition home or self-care (01) ==
PROVIDERS: Emergency Provider Student in an Organized Health Care Education/Training Program
DX: R06.00 Dyspnea, unspecified (principal); R07.9 Chest pain, unspecified; N39.0 Urinary tract infection, site not specified; Z20.822 Contact with and (suspected) exposure to COVID-19; Z79.899 Other long term (current) drug therapy
CPT/HCPCS: 36415; 71045; 71250; 80053; 81001; 83880; 84484; 85025; 85610; 87086; 87635; 93005; 99283; 99285